=== PATIENT | female | born 1975 | race Two or more races ===

== ENCOUNTER 2020-09-25 10:00 | Emergency (ER) | payer OTHER, SELFPAY ==
--- NOTE | 2020-09-25 | ECG_ITS ---
Test Reason : CHEST PAIN Blood Pressure : / mmHG Vent. Rate : 096 BPM Atrial Rate : 096 BPM P-R Int : 132 ms QRS Dur : 084 ms QT Int : 372 ms P-R-T Axes : 049 037 077 degrees QTc Int : 469 ms Normal sinus rhythm Normal ECG When compared with ECG of 02-MAR-2016 13:50, Nonspecific T wave abnormality no longer evident in Inferior leads Referred By: Generic ED Physician Electronically Signed By:JAKI CLEANING
[2020-09-25 10:13] VITALS: BP 126/72; PULSE 94; RESP 16; TEMP 37.3; O2SAT 98; BMI 48.2
--- NOTE | 2020-09-25 11:01 | XR_ITS ---
EXAMINATION: XR CHEST CLINICAL INFORMATION: Chest discomfort and headache. COMPARISON: None TECHNIQUE: Frontal view of the chest was obtained. Penetration is suboptimal. FINDINGS: No significant abnormality is noted involving the heart, lungs, mediastinum, bony thorax or soft tissues. XR/XR chest 1V IMPRESSION: No acute cardiopulmonary process.
[2020-09-25] MEDS: 0.9 % Sodium Chloride 1,000 ML 999 ML IVCONT (11:39)
[2020-09-25] MEDS: LORazepam 2 MG/ML VIAL 1 MG IVPUSH (11:39)
[2020-09-25 11:41] LABS: MANUAL DIFF FLAG NO
[2020-09-25] MEDS: Acetaminophen 325 MG TABLET 650 MG PO (11:43)
[2020-09-25 11:45] LABS: Basophils Percent Auto 0.3 % (0-2); Eosinophils Percent Auto 0.2 % (0-4); Imm Gran Abs Auto 0.04 X10*3/uL (0.00-0.03); Imm Gran Pct Auto 0.4 % (0.0-0.4); Lymphocytes Absolute Auto 1.3 X10*3/uL (1.2-4.9); Lymphocytes Percent Auto 11.6 % (20-40); Mean Corpuscular HGB Conc 31.8 g/dl (31.0-35.0); Mean Corpuscular Hemoglobin 31.1 pg (27.0-33.0); Mean Corpuscular Volume 97.8 fL (80-98); Mean Platelet Volume 10.7 fL (9.4-12.3); Monocytes Absolute Auto 0.3 X10*3/uL (0.1-1.2); Monocytes Percent Auto 2.7 % (2-11); Neutrophils Absolute Auto 9.6 X10*3/uL (2.0-8.3); Neutrophils Percent Auto 84.8 % (45-73); Platelet Count 315 X10*3/uL (160-400); Red Cell Distribution Width 14.3 % (11.0-16.0); White Blood Count 11.3 X10*3/uL (4.8-10.8)
[2020-09-25 11:48] LABS: INTERNATIONAL NORM RATIO 0.9 (0.9-1.1); Prothrombin Time 11.2 SEC (10.8-13.0)
[2020-09-25 11:52] LABS: D Dimer 247 NG/ML
--- NOTE | 2020-09-25 11:56 | ED_ITS ---
HPI - Chest Pain General Chief Complaint: Chest Pain Stated Complaint: cough, h/a, chest pressure Time Seen by Provider: 09/25/20 10:46 Source: patient Mode of arrival: ambulatory Limitations: no limitations History of Present Illness HPI narrative: 44yoF c PMHx of asthma and anxiety presenting to the ED with complaints of intermittent headaches, nausea/vomiting, chest pain/tightness diffuse along the entire chest, palpitations and just not feeling herself for the past 3 days. She reports that this started after 1 week and half ago when she was cleaning her bathroom with bleach went into a coughing fit she contacted her PCP who placed her on a taper of steroids for 9 days and before her taper was up on the last 3 days she started having all of the symptoms and they have been constant. Also reports that she is on a keto diet. Denies any fevers, chills, dizziness, changes in vision, jaw pain, paresthesias, radiation of the chest pain, back pain, abdominal pain, cough, sore throat, diarrhea or constipa tion or any other symptoms complaints or concerns at this time. Denies recent head injury or loss of consciousness. Related Data Home Medications Medication Instructions Recorded Confirmed citalopram 1 tab PO DAILY 09/25/20 09/25/20 sertraline 1.5 tab PO DAILY 09/25/20 09/25/20 Previous Rx's Medication Instructions Recorded lorazepam [Ativan] 0.5 mg PO TID PRN #10 tab 09/25/20 nitrofurantoin monohyd/m-cryst 100 mg PO BID 7 Days #14 cap 09/25/20 [Macrobid] Allergies Allergy/AdvReac Type Severity Reaction Status Date / Time No Known Allergies Allergy Unverified 06/13/20 15:47 Review of Systems Review of Systems: Constitutional : No changes in activity, No lethargy, No recent prior head injury, No agitation, No increased fussiness, No Fever, No Chills, No Night Sweats, No Fatigue, No Malaise ENT/Mouth : No Ear Pain, No Nasal discharge/drainage, no sinus pain, No sore throat, No Rhinorrhea, No Swallowing Difficulty Eyes: No Eye Pain, No Swelling, No Redness, No Foreign Body, No Vision Changes Cardiovascular : + Chest pain, + palpitations, No SOB, no Dyspnea on Exertion, No Orthopnea, No Edema, No extremity swelling Respiratory : No Cough, No Sputum, No Wheezing, No Dyspnea Gastrointestinal : + Nausea, + Vomiting, No Diarrhea, No abdominal Pain, No H ematochezia, No Melena Genitourinary : No Dysuria, No Urinary Frequency, No Urinary Incontinence, No Urgency, No Flank Pain Musculoskeletal : No joint pain, No neck stiffness, No back pain/injury Skin : No lacerations Neuro : No unsteady gait, No Paresthesias, No Loss of Consciousness, No altered mental status, No dizziness, + Headache Denies past medical history of HIV, recent trauma, coagulopathy, recent spinal/ epidural procedure, new medication, URI symptoms, close contacts with similar symptoms, tick bite, or known CO2 exposure. Yes all other systems are reviewed and are negative [facility] Past Medical History Attestation statement: The following information was validated with the patient. Medical History Anxiety Asthma Social History Social History Alcohol intake: unknown Smoked in Last 30 Days: No Use of substances other than those prescribed or required for medical reasons: Unknown Advance Directives: No Advance Directives Information Provided: Yes Physical Exam Vital Signs: Vital Signs: Last Vital Signs Temp 99.2 F 09/25/20 10:13 Pulse 70 09/25/20 15:14 Resp 16 09/25/20 15:14 BP 131/56 L 09/25/20 15:14 Pulse Ox 98 09/25/20 15:14 Body Mass Index 48.2 Vital signs have been reviewed as normal and appeared to be correct. Blood pres sure normal. Heart rate normal. Respiration rate normal. Temperature normal. Oxygen saturation normal. Appearance: Alert. Oriented X3. No acute distress. Head: Normal external exam. Normocephalic. Atraumatic. Able to rotate head bilaterally. Eyes: PERRLA. EOMI. No nystagmus noted. Conjunctiva and sclera normal. Eyelids normal. Corneal reflex normal. ENT: EAC normal. TM's Normal. Hearing normal. Pharynx normal. Uvula midline. tongue midline. Moist mucous membranes. No trismus noted. No drooling noted. No muffled voice noted. Neck: Normal inspection. Neck supple. FROM. No adenopathy. Thyroid Normal. No meningeal signs. No neck mass noted. CVS: Normal heart rate and rhythm. Heart sound normal. No murmurs noted. Pulses normal throughout. Respiratory: No respiratory distress. Painless inspiration. Breath sounds normal. No wheezes/rales/rhonchi noted. Chest nontender. No accessory muscle usage noted or decreased air movement noted. Back: Full range of motion noted. Skin: Skin warm and dry. Normal skin color. Normal skin turgor. No rashes/lesions/lacerations noted. Extremities: Extremities exhibit normal range of motion. Extremities nontender. Able to shrug shoulders bilaterally and keep up against resistance. Neuro: Oriented X 3. No motor deficit. No sensory deficit. Reflexes normal. Moving all extremities. No focal motor deficits. Cranial nerves II-XI intact bilaterally. Facial strength normal. Normal cognition. Speech normal. Gait normal. Strength 5/5 throughout. No pronator drift. No tremor noted. No fasciculations noted. Muscle tone normal throughout. No asterixis noted. Paozfj-hn-fvyn test normal. Heel to theodore test normal. Tandem gait normal. Does not sway with eyes open. Romberg test negative. Rapid alternating movement upper extremity normal. Rapid alternating movement lower extremity normal. Hand drop from overhead-Misses face. No rigidity noted. NIHSS score 0. Course Course Course Narrative: 11am - 44yoF c PMHx of asthma and anxiety presenting to the ED with complaints of intermittent headaches, nausea/vomiting, chest pain/tightness diffuse along the entire chest, palpitations and just not feeling herself for the past 3 days. - on exam patient is alert and oriented x3 no acute neuro deficits or focal wea kness noted. Vital signs are stable within normal limits. - Concern for UT vs CVA vs electrolyte abnormality vs Anxiety vs COVID -19 - Plan: Labs, COVID/RSV/flu, CXR, CT scan of brain, CT scan of chest for PE. Provide 1 mg of Ativan and a L of IV fluids then re-evaluate. Reevaluation(s) Reevaluation #1: - WBC at 11.3. BUN 25. troponin 12.3. BNP 276. Patient positive for UTI with positive nitrates. Negative for COVID/flu/RSV. CXR WNL. CT Scan of brain and CTA of chest negative for any acute processes. - therefore awaiting repeat troponin if negative delta will DC home with antibiotics for UTI most likely patient was having symptoms from being on the course of steroids and instructions to return if any new or worsening symptoms. Patient understands agrees the plan. Time: 16:17 Reevaluation #2: - repeat troponin trended down is now at 8.5 therefore negative delta. Will DC home with antibiotic for UTI and instructions return if any new or worsening symptoms to follow up with primary care provider. Patient understands agrees the plan. Time: 17:03 [facility] - Chest Pain Medical Records Data Attestation: I reviewed the patient's medical records. Lab Data Attestation: I reviewed the patient's lab results. Result diagrams: 09/25/20 11:26 09/25/20 11: Labs: Lab Results 09/25/20 09/25/20 09/25/20 Range/Units 11:26 11:26 11:26 WBC 11.3 H (4.8-10.8) X10*3/uL RBC 4.50 (4.20-5.50) X10*6/uL Hgb 14.0 (12.0-16.0) g/dl Hct 44.0 (37-47) % MCV 97.8 (80-98) fL MCH 31.1 (27.0-33.0) pg MCHC 31.8 (31.0-35.0) g/dl RDW 14.3 (11.0-16.0) % Plt Count 315 (160-400) X10*3/uL MPV 10.7 (9.4-12.3) fL Immature Gran % (Auto) 0.4 (0.0-0.4) % Neut % (Auto) 84.8 H (45-73) % Lymph % (Auto) 11.6 L (20-40) % [place] % (Auto) 2.7 (2-11) % Eos % (Auto) 0.2 (0-4) % Baso % (Auto) 0.3 (0-2) % Lymph # (Auto) 1.3 (1.2-4.9) X10*3/uL [place] # (Auto) 0.3 (0.1-1.2) X10*3/uL Eos # (Auto) 0.0 (0.0-0.4) X10*3/uL Baso # (Auto) 0.0 (0.0-0.2) X10*3/uL Abs Immat Gran (auto) 0.04 H (0.00-0.03) X10*3/uL Absolute Neuts (auto) 9.6 H (2.0-8.3) X10*3/uL Absolute Nucleated RBC 0.000 (0.0-0.012) X10*3/uL Nucleated RBC % (auto) 0.0 (0.0-0.2) /100WBC PT 11.2 (10.8-13.0) SEC INR 0.9 (0.9-1.1) D-Dimer NG/ML Sodium 144 (135-145) mmol/L Potassium 4.3 (3.3-5.1) mmol/l Chloride 106 (96-108) mmol/L Carbon Dioxide 30 H (22-29) mmol/L Anion Gap 12 (12-20) BUN 25 H (9-16) mg/dL Creatinine 0.93 (0.5-1.4) mg/dL Estim Creat Clear Calc 105.7 Estimated GFR > 60 Random Glucose 119 H (60-115) mg/dL Calcium 9.4 (8.4-10.2) mg/dL Magnesium 2.2 (1.6-2.6) mg/dL Total Bilirubin 0.5 (0.0-1.0) mg/dL Direct Bilirubin 0.2 (0.0-0.5) mg/dL AST 18 (5-31) U/L ALT 28 (0-31) U/L Alkaline Phosphatase 88 (39-117) U/L Troponin I High Sens (<3.5-17.0) ng/L B-Natriuretic Peptide (<100) pg/mL Total Protein 7.1 (6.5-8.0) g/dL Albumin 3.9 (3.5-5.0) g/dL Beta HCG, Quant mIU/mL Urine Color Urine Appearance Urine pH (5.0-8.0) Ur Specific Latty (1.005-1.025) Urine Protein (NEG-TRACE) MG/DL Urine Glucose (UA) (NEG) MG/DL Urine Ketones (NEG) MG/DL Urine Blood (NEG) Urine Nitrite (NEG) Ur Leukocyte Esterase (NEG) Urine RBC (0) /HPF Urine WBC (0-4) /HPF Ur Squamous Epith Cells /LPF Urine Bacteria /LPF Coronavirus (PCR) (Negative) Influenza Type A (PCR) (Negative) Influenza Type B (PCR) (Negative) RSV RNA Qual (PCR) (Negative) 09/25/20 09/25/20 09/25/20 Range/Units 11:26 11:26 11:26 WBC (4.8-10.8) X10*3/uL RBC (4.20-5.50) X10*6/uL Hgb (12.0-16.0) g/dl Hct (37-47) % MCV (80-98) fL MCH (27.0-33.0) pg MCHC (31.0-35.0) g/dl RDW (11.0-16.0) % Plt Count (160-400) X10*3/uL MPV (9.4-12.3) fL Immature Gran % (Auto) (0.0-0.4) % Neut % (Auto) (45-73) % Lymph % (Auto) (20-40) % [place] % (Auto) (2-11) % Eos % (Auto) (0-4) % Baso % (Auto) (0-2) % Lymph # (Auto) (1.2-4.9) X10*3/uL [place] # (Auto) (0.1-1.2) X10*3/uL Eos # (Auto) (0.0-0.4) X10*3/uL Baso # (Auto) (0.0-0.2) X10*3/uL Abs Immat Gran (auto) (0.00-0.03) X10*3/uL Absolute Neuts (auto) (2.0-8.3) X10*3/uL Absolute Nucleated RBC (0.0-0.012) X10*3/uL Nucleated RBC % (auto) (0.0-0.2) /100WBC PT (10.8-13.0) SEC INR (0.9-1.1) D-Dimer 247 NG/ML Sodium (135-145) mmol/L Potassium (3.3-5.1) mmol/l Chloride (96-108) mmol/L Carbon Dioxide (22-29) mmol/L Anion Gap (12-20) BUN (9-16) mg/dL Creatinine (0.5-1.4) mg/dL Estim Creat Clear Calc Estimated GFR Random Glucose (60-115) mg/dL Calcium (8.4-10.2) mg/dL Magnesium (1.6-2.6) mg/dL Total Bilirubin (0.0-1.0) mg/dL Direct Bilirubin (0.0-0.5) mg/dL AST (5-31) U/L ALT (0-31) U/L Alkaline Phosphatase (39-117) U/L Troponin I High Sens 12.3 (<3.5-17.0) ng/L B-Natriuretic Peptide 276 H (<100) pg/mL Total Protein (6.5-8.0) g/dL Albumin (3.5-5.0) g/dL Beta HCG, Quant < 2 mIU/mL Urine Color Urine Appearance Urine pH (5.0-8.0) Ur Specific Latty (1.005-1.025) Urine Protein (NEG-TRACE) MG/DL Urine Glucose (UA) (NEG) MG/DL Urine Ketones (NEG) MG/DL Urine Blood (NEG) Urine Nitrite (NEG) Ur Leukocyte Esterase (NEG) Urine RBC (0) /HPF Urine WBC (0-4) /HPF Ur Squamous Epith Cells /LPF Urine Bacteria /LPF Coronavirus (PCR) (Negative) Influenza Type A (PCR) (Negative) Influenza Type B (PCR) (Negative) RSV RNA Qual (PCR) (Negative) 09/25/20 09/25/20 09/25/20 Range/Units 11:28 11:57 15:35 WBC (4.8-10.8) X10*3/uL RBC (4.20-5.50) X10*6/uL Hgb (12.0-16.0) g/dl Hct (37-47) % MCV (80-98) fL MCH (27.0-33.0) pg MCHC (31.0-35.0) g/dl RDW (11.0-16.0) % Plt Count (160-400) X10*3/uL MPV (9.4-12.3) fL Immature Gran % (Auto) (0.0-0.4) % Neut % (Auto) (45-73) % Lymph % (Auto) (20-40) % [place] % (Auto) (2-11) % Eos % (Auto) (0-4) % Baso % (Auto) (0-2) % Lymph # (Auto) (1.2-4.9) X10*3/uL [place] # (Auto) (0.1-1.2) X10*3/uL Eos # (Auto) (0.0-0.4) X10*3/uL Baso # (Auto) (0.0-0.2) X10*3/uL Abs Immat Gran (auto) (0.00-0.03) X10*3/uL Absolute Neuts (auto) (2.0-8.3) X10*3/uL Absolute Nucleated RBC (0.0-0.012) X10*3/uL Nucleated RBC % (auto) (0.0-0.2) /100WBC PT (10.8-13.0) SEC INR (0.9-1.1) D-Dimer NG/ML Sodium (135-145) mmol/L Potassium (3.3-5.1) mmol/l Chloride (96-108) mmol/L Carbon Dioxide (22-29) mmol/L Anion Gap (12-20) BUN (9-16) mg/dL Creatinine (0.5-1.4) mg/dL Estim Creat Clear Calc Estimated GFR Random Glucose (60-115) mg/dL Calcium (8.4-10.2) mg/dL Magnesium (1.6-2.6) mg/dL Total Bilirubin (0.0-1.0) mg/dL Direct Bilirubin (0.0-0.5) mg/dL AST (5-31) U/L ALT (0-31) U/L Alkaline Phosphatase (39-117) U/L Troponin I High Sens 8.5 (<3.5-17.0) ng/L B-Natriuretic Peptide (<100) pg/mL Total Protein (6.5-8.0) g/dL Albumin (3.5-5.0) g/dL Beta HCG, Quant mIU/mL Urine Color YELLOW Urine Appearance CLEAR Urine pH 8.5 H (5.0-8.0) Ur Specific Latty 1.020 (1.005-1.025) Urine Protein NEG (NEG-TRACE) MG/DL Urine Glucose (UA) NEG (NEG) MG/DL Urine Ketones NEG (NEG) MG/DL Urine Blood NEG (NEG) Urine Nitrite POS H (NEG) Ur Leukocyte Esterase NEG (NEG) Urine RBC 0 (0) /HPF Urine WBC 0-2 (0-4) /HPF Ur Squamous Epith Cells TRACE /LPF Urine Bacteria 1+ /LPF Coronavirus (PCR) NEGATIVE (Negative) Influenza Type A (PCR) NEGATIVE (Negative) Influenza Type B (PCR) NEGATIVE (Negative) RSV RNA Qual (PCR) NEGATIVE (Negative) Imaging Data Chest x-ray: Attestation: I personally reviewed and interpreted this imaging study as follows: Radiologist's impression: IMPRESSION: No acute cardiopulmonary process. CT scan - head: Attestation: I personally reviewed and interpreted this imaging study as follows: Radiologist's impression: IMPRESSION: No acute intracranial pathology. CT scan of chest for PE: Attestation: I personally reviewed and interpreted this imaging study as follows: Radiologist's impression: IMPRESSION: No evidence of PE. No evidence of aortic dissection or aneurysm. The lungs are clear. VTE: negative ECG Data ECG #1: Attestation: I personally reviewed and interpreted this ECG as follows: ECG interpretation date: 09/25/20 ECG interpretation time: 10:37 Interpretation: NSR With a ventricular rate of 96 with normal LA interval normal QRS duration normal QT/QTC interval. No acute ischemic changes noted. Similar when compared to prior EKG On 03/02/2016. Discharge Plan Discharge Clinical Impression: Elevated troponin, Palpitation, Headache, UTI (urinary tract infection) Patient Disposition: Home, Self-Care Instructions: Chest Pain (ED), Heart Palpitations (ED), Urinary Tract Infection in Women (ED), Acute Headache (ED), High Troponin Levels (ED) Prescriptions: New nitrofurantoin monohyd/m-cryst [Macrobid] 100 mg capsule 100 mg PO BID 7 Days Qty: 14 RF: 0 lorazepam [Ativan] 0.5 mg tablet 0.5 mg PO TID PRN (Reason: anxiety) Qty: 10 RF: 0 No Action citalopram 40 mg tablet 1 tab PO DAILY RF: 0 sertraline 100 mg tablet 1.5 tab PO DAILY RF: 0 Referrals: Titus Perez MD [Primary Care Provider] - 2 days Unruly Carter MD [Physician] - 2 days Stand Alone Forms: Work/School Release Print Language: Icelandic
--- NOTE | 2020-09-25 11:59 | CT_ITS ---
EXAMINATION: CT ANGIOGRAM OF THE CHEST WITH AND WITHOUT CONTRAST (CT PULMONARY ANGIOGRAM FOR PE) CLINICAL INFORMATION: Reason for Exam pt c headache/chest pain/sob x 3 days COMPARISON: None TECHNIQUE: Prior to contrast administration, noncontrast localization images were obtained. Subsequently, multidetector volumetric imaging was performed from the thoracic inlet to below the diaphragms following the administration of 80 mL Omnipaque 350 intravenous contrast. No contrast reaction reported Sagittal, coronal, and MIP oblique sagittal reformatted images were obtained on the CT workstation, uploaded to PACS, and reviewed. This CT examination was performed using dose optimization techniques as appropriate, variously including the following: *Automated exposure control *Adjustment of mA and/or kV according to patient size (this includes techniques or standardized protocols for targeted exams where dose is matched to indication/reason for exam; i.e. extremities or head) *Use of iterative reconstruction technique Total exam dose-length product 555 mGy-cm FINDINGS: QUALITY OF STUDY/CONTRAST BOLUS: Satisfactory. PULMONARY ARTERIES: No central or segmental pulmonary emboli. THORACIC AORTA: No aneurysm or dissection. LUNG: The lungs are well-expanded without any focal consolidation or mass or pulmonary nodule. PLEURA: No pleural effusion or pneumothorax. MEDIASTINUM: Thyroid lobes are symmetrical and normal. The central trachea and the bronchi widely patent. The heart size and the great vessels are normal caliber. No evidence of septal bowing or right heart strain. CHEST WALL/AXILLA: No axillary or internal mammary lymphadenopathy. OSSEOUS STRUCTURES: No acute or suspicious osseous abnormality. Mildly in disc changes and ventral spondylosis noted in mid and lower dorsal spine. No lytic process seen. UPPER ABDOMEN: Utilized liver, spleen, pancreas and bilateral adrenal glands are unremarkable. Visualized upper kidneys are unremarkable. No reflux of contrast into the hepatic veins to suggest elevated right heart pressures. CT/CT angio chest PE protocol IMPRESSION: No evidence of PE. No evidence of aortic dissection or aneurysm. The lungs are clear. VTE: negative
--- NOTE | 2020-09-25 11:59 | CT_ITS ---
EXAMINATION: CT HEAD WITHOUT CONTRAST CLINICAL INFORMATION: Headache, chest pain, shortness of breath for 3 days. COMPARISON: None TECHNIQUE: Contiguous axial imaging was performed from the skull base to vertex without intravenous administration of contrast. Coronal and sagittal reformatted images were obtained. This CT examination was performed using dose optimization techniques as appropriate, variously including the following: *Automated exposure control *Adjustment of mA and/or kV according to patient size (this includes techniques or standardized protocols for targeted exams where dose is matched to indication/reason for exam; i.e. extremities or head) *Use of iterative reconstruction technique DLP: 788 mGy-cm FINDINGS: There is no evidence of acute intracranial hemorrhage or territorial infarction. No abnormal mass effect or midline shift is seen. Saavedra to white matter differentiation is well preserved. No extra-axial fluid collections are identified. The ventricles are normal in size. There is no abnormal attenuation within the brain parenchyma. The osseous structures and soft tissues are normal. The mastoid air cells and visualized portions of the paranasal sinuses are well aerated. CT/CT head/brain wo con IMPRESSION: No acute intracranial pathology.
[2020-09-25 12:05] LABS: Glucose Urine UA NEG (NEG); Leukocyte Esterase Urine NEG (NEG); Nitrite Urine POS (NEG); PH 8.5 (5.0-8.0); Urine Blood NEG (NEG); Urine Ketones NEG (NEG); Urine Protein NEG (NEG-TRACE)
[2020-09-25 12:06] LABS: Appearance Urine CLEAR; Color Urine YELLOW
[2020-09-25 12:15] LABS: B Type Natriuretic Peptide 276 pg/mL (<100); Troponin-I High Sensitivity 12.3 ng/L (<3.5-17.0)
[2020-09-25 12:16] LABS: Alanine Aminotransferase 28 U/L (0-31); Albumin Level 3.9 g/dL (3.5-5.0); Alkaline Phosphatase 88 U/L (39-117); Anion Gap 12 (12-20); Aspartate Amino Transferase 18 U/L (5-31); Bilirubin Direct 0.2 mg/dL (0.0-0.5); Bilirubin Total 0.5 mg/dL (0.0-1.0); Blood Urea Nitrogen 25 mg/dL (9-16); Calcium 9.4 mg/dL (8.4-10.2); Carbon Dioxide 30 mmol/L (22-29); Chloride 106 mmol/L (96-108); Creatinine Clr Calc Pharmacy 105.7; Estimated Glomerular Filt Rate > 60; Glucose Random 119 mg/dL (60-115); HCG Quantitative < 2 mIU/mL; Magnesium 2.2 mg/dL (1.6-2.6); Potassium 4.3 mmol/l (3.3-5.1); Sodium 144 mmol/L (135-145); Total Protein 7.1 g/dL (6.5-8.0)
[2020-09-25 12:22] LABS: Bacteria Urine 1+ /LPF; RBC Urine 0 /HPF (0); Squamous Epithelial Cell Urine TRACE /LPF; WBC Urine 0-2 /HPF (0-4)
[2020-09-25] MEDS: iohexoL 350 MG/ML 100 ML INFUS..BTL IV (14:37)
[2020-09-25] MEDS: Ibuprofen 800 MG TABLET PO (15:10)
[2020-09-25 15:14] VITALS: BP 131/56; PULSE 70; RESP 16; O2SAT 98
[2020-09-25 15:57] LABS: Influenza A PCR NEGATIVE (Negative); Influenza B PCR NEGATIVE (Negative); Resp Syncy Virus RNA Qual PCR NEGATIVE (Negative); SARS COV2 PCR INHOUSE NEGATIVE (Negative)
[2020-09-25 16:17] LABS: Troponin-I High Sensitivity 8.5 ng/L (<3.5-17.0)
== END 2020-09-25 18:06 | disposition home or self-care (01) ==
PROVIDERS: Physician Assistant Medical; Emergency Provider Emergency Medicine Emergency Medical Services; PCP Internal Medicine
DX: R00.2 Palpitations (principal); R51.9 Headache, unspecified; N39.0 Urinary tract infection, site not specified; R77.8 Other specified abnormalities of plasma proteins; Z20.828 Contact with and (suspected) exposure to other viral communicable diseases
CPT/HCPCS: 0241U; 36415; 70450; 71045; 71275; 80048; 80076; 81001; 81003; 83735; 83880; 84484; 84702; 85025; 85379; 85610; 87086; 87088; 87147; 87186; 93005; 96361; 96374; 99284; 99285; J2060; Q9967

== ENCOUNTER 2021-09-16 22:39 | Emergency (ER) | payer OTHER, SELFPAY ==
[2021-09-16 23:14] VITALS: BP 183/59; PULSE 69; RESP 18; TEMP 36.4; O2SAT 96; BMI 41.5
[2021-09-16 23:46] LABS: COVID-19 Test Negative (Negative)
== END 2021-09-17 01:00 | disposition left against medical advice (07) ==
LOC: HO.ED 09-17 00:50
PROVIDERS: Emergency Provider Emergency Medicine; PCP Internal Medicine
DX: R51.9 Headache, unspecified (principal); R42 Dizziness and giddiness; F41.1 Generalized anxiety disorder; F43.0 Acute stress reaction; Z20.822 Contact with and (suspected) exposure to COVID-19
CPT/HCPCS: 36415; 87635; 99282; 99283; 99284

== ENCOUNTER 2022-03-14 17:10 | Emergency (ER) | payer OTHER, SELFPAY ==
--- NOTE | ~2022-03-14 | CT_ITS ---
EXAMINATION: CT ABDOMEN AND PELVIS WITHOUT CONTRAST CLINICAL INFORMATION: Right hip/groin pain. History of hip dysplasia and hip replacement. COMPARISON: No recent priors. CT abdomen dated from 08/04/2008. TECHNIQUE: Multidetector volumetric imaging was performed from the superior aspect of the liver through the pubic symphysis. Sagittal and coronal reformatted images were obtained on the technologist's workstation. This CT examination was performed using dose optimization techniques as appropriate, variously including the following: *Automated exposure control. *Adjustment of mA and/or kV according to patient size (this includes techniques or standardized protocols for targeted exams where dose is matched to indication/reason for exam; i.e. extremities or head). *Use of iterative reconstruction technique. DLP: 1029 mGy-cm FINDINGS: LUNG BASES: Small calcified granuloma in the right lower lobe (4:48). No focal consolidation or pleural effusions. Subsegmental atelectasis. LIVER, GALLBLADDER, AND BILIARY TREE: The liver is enlarged measuring 22 cm craniocaudally with decreased attenuation most consistent with hepatic steatosis. No discrete focal liver abnormality is identified in this limited noncontrast examination. Cholecystectomy. No biliary ductal dilatation. PANCREAS: Limited noncontrast examination. Previously described fluid attenuating lesion in the body of the pancreas is not well visualized in this examination. The main pancreatic duct is nondilated. SPLEEN: Limited noncontrast examination, unremarkable. ADRENAL GLANDS: No adrenal mass. KIDNEYS AND URETERS: Limited noncontrast examination. No nephrolithiasis or hydronephrosis. BLADDER: Limitedly evaluated as it is partially obscured by streak artifacts from a right hip arthroplasty and underdistended. GASTROINTESTINAL TRACT: The stomach and the small bowel are nondilated. Normal appendix (5:54). No evidence of acute diverticulitis or colitis. No bowel obstruction. ABDOMINAL WALL: Anterior abdominal rectus muscle diastases. No significant hernia. LYMPH NODES: No lymphadenopathy by size criteria. VASCULAR: Scattered atherosclerotic disease. Abdominal aorta is of normal diameter. PELVIC VISCERA: Partially obscured by streak artifacts from right hip prosthesis. No definite pelvic lesions. OSSEOUS STRUCTURES: The visualized portions of the right hip arthroplasty are intact. However, the distal aspect of the femoral stem is outside of the [id number]. Stable 1 cm anterolisthesis of L5 on S1 with bilateral L5 pars defects. Multilevel degenerative changes of the spine. CT/CT abdomen pelvis wo con IMPRESSION: 1. No acute abnormality to explain the patient's symptoms. It is important to note, that the distal aspect of the femoral stem pole of the right hip arthroplasty is outside of the [id number]. Therefore, if a periprosthetic fracture or other complication is suspected, correlation with a dedicated radiographic examination of the right hip/right femur is recommended. 2. Hepatomegaly and hepatic steatosis.
[2022-03-14 18:00] VITALS: BP 131/105; PULSE 72; RESP 18; TEMP 36.7; O2SAT 99; BMI 47.5
[2022-03-14 19:45] LABS: MANUAL DIFF FLAG NO
[2022-03-14 19:46] LABS: Appearance Urine HAZY; Basophils Percent Auto 0.3 % (0-2); Color Urine YELLOW; Eosinophils Absolute Auto 0.4 X10*3/uL (0.0-0.4); Eosinophils Percent Auto 3.4 % (0-4); Glucose Urine UA NEG (NEG); Hematocrit 44.4 % (37.0-47.0); Hemoglobin 14.4 g/dl (12.0-16.0); Imm Gran Abs Auto 0.03 X10*3/uL (0.00-0.03); Imm Gran Pct Auto 0.3 % (0.0-0.4); Leukocyte Esterase Urine NEG (NEG); Lymphocytes Percent Auto 34.8 % (20-40); Mean Corpuscular HGB Conc 32.4 g/dl (31.0-35.0); Mean Corpuscular Hemoglobin 31.9 pg (27.0-33.0); Mean Corpuscular Volume 98.2 fL (80.0-98.0); Mean Platelet Volume 9.6 fL (9.4-12.3); Monocytes Absolute Auto 0.7 X10*3/uL (0.1-1.2); Monocytes Percent Auto 6.4 % (2-11); Neutrophils Absolute Auto 6.4 x10*3/uL (2.0-8.3); Neutrophils Percent Auto 54.8 % (45-73); Nitrite Urine NEG (NEG); PH 5.5 (5.0-8.0); Platelet Count 306 X10*3/uL (160-400); Red Blood Count 4.52 X10*6/uL (4.20-5.50); Specific Gravity - Urine >= 1.030 (1.005-1.025); Urine Blood NEG (NEG); Urine Ketones NEG (NEG); Urine Protein NEG (NEG-TRACE); White Blood Count 11.6 X10*3/uL (4.8-10.8)
[2022-03-14 20:02] LABS: Alanine Aminotransferase 15 U/L (0-31); Albumin Level 4.1 g/dL (3.5-5.0); Alkaline Phosphatase 87 U/L (39-117); Anion Gap 12 (12-20); Aspartate Amino Transferase 15 U/L (5-31); Bilirubin Direct 0.2 mg/dL (0.0-0.5); Bilirubin Total 0.5 mg/dL (0.0-1.0); Blood Urea Nitrogen 18 mg/dL (9-16); Calcium 9.2 mg/dL (8.4-10.2); Carbon Dioxide 27 mmol/L (22-29); Chloride 105 mmol/L (96-108); Creatinine Clr Calc Pharmacy 109.8; Estimated Glomerular Filt Rate > 60; Glucose Fasting 91 mg/dL (60-99); Lipase 14 U/L (8-78); Potassium 4.4 mmol/L (3.3-5.1); Sodium 140 mmol/L (135-145); Total Protein 7.7 g/dL (6.5-8.0)
--- NOTE | 2022-03-14 21:33 | ED.GENADULT ---
HPI - General Adult General Chief complaint: Abdominal Pain Stated complaint: severe R hip pain Time Seen by Provider: 03/14/22 21:21 Source: patient Limitations: no limitations History of Present Illness HPI narrative: This is a 46-year-old female with history of right hip dysplasia and right hip replacement 8 years ago, who for the last few days has had recurrent pain in her right hip and right groin, as well as in her right buttock. The patient denies any injury. Patient saw her PCP today and had an x-ray which showed the hardware to be intact. She does have some sense of numbness in her right leg over the whole leg. She is able to ambulate. 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 She has also noted that she occasionally has had incontinence of urine in the last few days. Pain is worst when she tries to flex her right hip. She does have chronic low back pain. Related Data Home Medications Medication Instructions Recorded Confirmed citalopram 40 mg tablet 1 tab PO DAILY 09/25/20 09/25/20 sertraline 100 mg tablet 1.5 tab PO DAILY 09/25/20 09/25/20 Previous Rx's Medication Instructions Recorded lorazepam 0.5 mg tablet (Ativan) 0.5 mg PO TID PRN anxiety #10 tabs 09/25/20 nitrofurantoin 100 mg PO BID uti 7 days #14 caps 09/25/20 monohydrate/macrocrystals 100 mg capsule (Macrobid) prednisone 20 mg tablet 40 mg PO DAILY #10 tabs 03/14/22 Allergies Allergy/AdvReac Type Severity Reaction Status Date / Time acetaminophen [From Percocet] Allergy Itching Verified 03/14/22 18:03 oxycodone [From Percocet] Allergy Itching Verified 03/14/22 18:03 Review of Systems Review of Systems: As per HPI Constitutional: Constitutional: Denies chills and Denies fever(s) Cardiovascular: Cardiovascular: Reports no additional cardiovascular complaints Respiratory: Respiratory: Reports no additional respiratory complaints Gastrointestinal: Gastrointestinal: Reports no additional gastrointestinal complaints Musculoskeletal: Musculoskeletal: Reports as per HPI [facility] Past Medical History Medical History Anxiety Asthma Social History Social History Alcohol intake: unknown Advance Directives: No Advance Directives Information Provided: Yes Physical Exam ED Vital Signs: Vital Signs - 24 hr 03/14/22 18:00 Temperature 98.0 F Pulse Rate 72 Respiratory Rate 18 Blood Pressure 131/105 H Pulse Oximetry 99 Oxygen Delivery Method Room Air BMI result Body Mass Index 47.5 Const Other: Patient is morbidly obese. Patient is able to move her legs off the gurney and stand up from the gurney. She is able to take a few steps normally. She does have decreased power of right foot dorsiflexion and big toe dorsiflexion which she states is normal. She has global decreased sensation to light touch in her right leg, not dermatomal. General: no acute distress Orientation/consciousness: patient oriented x3 HENMT Head: Yes normal to inspection General nose exam: Normal external nose present Mouth: moist mucous membranes Throat: Yes posterior oropharynx normal, Yes tonsils normal and Yes uvula midline Eyes Eyelids: Yes eyelids normal Conjunctivae: conjunctivae normal Pupils: Equal, round and reactive pupils present Neck Neck: Yes supple Resp Effort & Inspection: normal respiratory effort Auscultation: clear to auscultation bilaterally Cardio Rate: regular rate Rhythm: regular rhythm Heart sounds: S1 normal heart sound present, S2 normal heart sound present, no gallops, no murmurs and no rubs GI Other: Morbidly obese, no tenderness to the inguinal areas Inspection: No distended Palpation (GI): Soft to palpation and nontender Auscultation: normal bowel sounds Back/Spine/Pelvis Other: Tender thoracic spine Skin General skin exam: other (Warm and dry) Neuro General: patient oriented x3 and CN's II-XI intact bilaterally Cranial nerves: Yes Equal, round and reactive pupils present Extrem General: Yes no pedal edema Psych Affect: normal affect Attitude: cooperative Medical Decision Making [facility] Narrative Medical decision making narrative: Patient was right groin/hip/buttock pain, in the setting of prior right hip dysplasia and hip replacement several years ago. Patient had been pain-free until recently. Patient also complained of some urinary continence however none in the emergency department and had no other clinical evidence of cauda equinus syndrome, was able to ambulate normally. CT scan of the abdomen and pelvis was bone windows showed no concerning findings. Patient was advised to follow-up with orthopedic physician Lab Data Result diagrams: 03/14/22 19:38 03/14/22 19:38 Labs: Lab Results 03/14/22 03/14/22 03/14/22 Range/Units 19:38 19:38 19:38 WBC 11.6 H (4.8-10.8) X10*3/uL RBC 4.52 (4.20-5.50) X10*6/uL Hgb 14.4 (12.0-16.0) g/dl Hct 44.4 (37.0-47.0) % MCV 98.2 H (80.0-98.0) fL MCH 31.9 (27.0-33.0) pg MCHC 32.4 (31.0-35.0) g/dl RDW 13.0 (11.0-16.0) % Plt Count 306 (160-400) X10*3/uL MPV 9.6 (9.4-12.3) fL Immature Gran % (Auto) 0.3 (0.0-0.4) % Neut % (Auto) 54.8 (45-73) % Lymph % (Auto) 34.8 (20-40) % [place] % (Auto) 6.4 (2-11) % Eos % (Auto) 3.4 (0-4) % Baso % (Auto) 0.3 (0-2) % Lymph # (Auto) 4.0 (1.2-4.9) X10*3/uL [place] # (Auto) 0.7 (0.1-1.2) X10*3/uL Eos # (Auto) 0.4 (0.0-0.4) X10*3/uL Baso # (Auto) 0.0 (0.0-0.2) X10*3/uL Abs Immat Gran (auto) 0.03 (0.00-0.03) X10*3/uL Absolute Neuts (auto) 6.4 (2.0-8.3) x10*3/uL Absolute Nucleated RBC 0.000 (0.0-0.012) X10*3/uL Nucleated RBC % (auto) 0.0 (0.0-0.2) /100WBC Sodium 140 (135-145) mmol/L Potassium 4.4 (3.3-5.1) mmol/L Chloride 105 (96-108) mmol/L Carbon Dioxide 27 (22-29) mmol/L Anion Gap 12 (12-20) BUN 18 H (9-16) mg/dL Creatinine 0.78 (0.5-1.4) mg/dL Estim Creat Clear Calc 109.8 Estimated GFR > 60 Fasting Glucose 91 (60-99) mg/dL Calcium 9.2 (8.4-10.2) mg/dL Total Bilirubin 0.5 (0.0-1.0) mg/dL Direct Bilirubin 0.2 (0.0-0.5) mg/dL AST 15 (5-31) U/L ALT 15 (0-31) U/L Alkaline Phosphatase 87 (39-117) U/L Total Protein 7.7 (6.5-8.0) g/dL Albumin 4.1 (3.5-5.0) g/dL Lipase 14 (8-78) U/L Urine Color YELLOW Urine Appearance HAZY Urine pH 5.5 (5.0-8.0) Ur Specific [place] >= 1.030 H (1.005-1.025) Urine Protein NEG (NEG-TRACE) MG/DL Urine Glucose (UA) NEG (NEG) MG/DL Urine Ketones NEG (NEG) MG/DL Urine Blood NEG (NEG) Urine Nitrite NEG (NEG) Ur Leukocyte Esterase NEG (NEG) Imaging Data CT abdomen pelvis without contrast: Radiologist's impression: IMPRESSION: 1. No acute abnormality to explain the patient's symptoms. It is important to note, that the distal aspect of the femoral stem pole of the right hip arthroplasty is outside of the [id number]. Therefore, if a periprosthetic fracture or other complication is suspected, correlation with a dedicated radiographic examination of the right hip/right femur is recommended. ? 2. Hepatomegaly and hepatic steatosis. Discharge Plan Discharge Clinical Impression: Acute hip pain Patient Disposition: Home, Self-Care Instructions: Hip Pain (ED) Additional Instructions: Follow-up with the orthopedic physician. Start the prednisone as prescribed Prescriptions: New prednisone 20 mg tablet 40 mg PO DAILY Qty: 10 0RF No Action citalopram 40 mg tablet 1 tab PO DAILY sertraline 100 mg tablet 1.5 tab PO DAILY nitrofurantoin monohyd/m-cryst [Macrobid] 100 mg capsule 100 mg PO BID 7 Days Qty: 14 0RF Rx Instructions: must administer with a meal/food lorazepam [Ativan] 0.5 mg tablet 0.5 mg PO TID PRN (Reason: anxiety) Qty: 10 0RF Discharge Date/Time: 03/14/22 23:48
[2022-03-14] MEDS: diazePAM 10 MG/2 ML CARTRIDGE IM (22:30)
[2022-03-14] MEDS: Ketorolac Tromethamine 30 MG/ML VIAL IM (22:30)
[2022-03-14] MEDS: dexAMETHasone sod phosphate 10 MG/ML VIAL IM (22:30)
== END 2022-03-14 23:48 | disposition home or self-care (01) ==
PROVIDERS: Emergency Provider Emergency Medicine; PCP Internal Medicine
DX: M25.551 Pain in right hip (principal); Z96.641 Presence of right artificial hip joint
CPT/HCPCS: 36415; 74176; 80048; 80076; 81003; 83690; 85025; 96372; 99283; 99284; J1100; J1885; J3360

== ENCOUNTER 2023-11-15 17:12 | Emergency (ER) | payer OTHER, SELFPAY ==
--- NOTE | ~2023-11-15 | XR_ITS ---
EXAMINATION: XR CHEST CLINICAL INFORMATION: Chest pain, shortness of breath. COMPARISON: CTA chest 09/25/2020. Chest radiograph 09/25/2020. TECHNIQUE: Frontal view of the chest was obtained. FINDINGS: Normal appearance of the cardiomediastinal silhouette. No focal airspace opacities, pleural effusion or pneumothorax. No acute osseous findings. Visualized upper abdomen is within normal limits. XR/XR chest 1V IMPRESSION: No acute cardiopulmonary findings.
--- NOTE | ~2023-11-15 | CT_ITS ---
EXAMINATION: CT head/brain wo IV con CLINICAL INFORMATION: Reason for Exam NICK, HTN COMPARISON: CT head 09/25/2020 TECHNIQUE: Contiguous axial imaging was performed from the skull base to vertex without intravenous contrast. Sagittal and coronal reformatted images were obtained. This CT examination was performed using dose optimization techniques as appropriate, variously including the following: * Automated exposure control * Adjustment of mA and/or kV according to patient size (this includes techniques or standardized protocols for targeted exams where dose is matched to indication/reason for exam; i.e. extremities or head) Use of iterative reconstruction technique DLP: 875 mGy-cm FINDINGS: Stable hyperdensity in the central anil is favored to be secondary to technique/volume averaging. Otherwise, no definite intracranial hemorrhage.No mass-effect or ventricular shift is noted. No acute, territorial loss of dyson-white differentiation. The ventricles and sulci are appropriate in size and configuration for the patient's stated age. No depressed calvarial fracture. Scattered polypoid mucosal thickening in the paranasal sinuses with aerated debris in the left maxillary sinus. The mastoid air cells are clear. CT/CT head/brain wo IV con IMPRESSION: Punctate hyperdensity in the central anil is favored to be secondary to technique/volume averaging. Otherwise, no definite acute intracranial hemorrhage. No acute, territorial loss of dyson-white differentiation.
[2023-11-15 18:17] VITALS: BP 178/101; PULSE 110; RESP 18; TEMP 36.9; O2SAT 94; BMI 60.4
--- NOTE | 2023-11-15 18:17 | ED.GENADULT ---
HPI - General Adult General Chief complaint: Recheck/Abnormal Lab/Rx Stated complaint: high blood pressure, chest discomfort Time Seen by Provider: 11/15/23 20:47 Source: patient Mode of arrival: ambulatory Limitations: no limitations History of Present Illness HPI narrative: Patient is a 48-year-old female who presents to the emergency department for evaluation of multiple complaints, reports yesterday evening when she was walking to the garage she developed sudden onset of headache, dizziness, diffuse anterior chest pain with some shortness of breath that resolved after a few minutes of resting. Reports that she awoke today still with a headache that was frontal in nature bilateral behind both eyes like a pressure sensation. Reports intermittent paresthesias to the bilateral upper and lower extremities. She had attributed this to a stress reaction, regarding the recent loss of her over the past 2 weeks. But states ?I just wanted to come in to make sure not heart attack?. At this time she denies any chest pain or shortness of breath. Headache persist, she did not take any medication at home to try and help alleviate. Related Data Home Medications Medication Instructions Recorded Confirmed citalopram 40 mg tablet 1 tab PO DAILY 09/25/20 09/25/20 sertraline 100 mg tablet 1.5 tab PO DAILY 09/25/20 09/25/20 Previous Rx's Medication Instructions Recorded lorazepam 0.5 mg tablet (Ativan) 0.5 mg PO TID PRN anxiety #10 tabs 09/25/20 nitrofurantoin 100 mg PO BID uti 7 days #14 caps 09/25/20 monohydrate/macrocrystals 100 mg capsule (Macrobid) prednisone 20 mg tablet 40 mg (2 x 20 mg) PO DAILY #10 tabs 03/14/22 Allergies Allergy/AdvReac Type Severity Reaction Status Date / Time acetaminophen [From Percocet] Allergy Itching Verified 11/15/23 18:17 oxycodone [From Percocet] Allergy Itching Verified 11/15/23 18:17 Review of Systems Review of Systems: Yes all other systems are reviewed and are negative PMFSH Past Medical History Attestation statement: The following information was validated with the patient. Source: old records reviewed Medical History Anxiety Asthma Social History Social History Alcohol intake: unknown Advance Directives: No Advance Directives Information Provided: No Physical Exam ED Vital Signs: Vital Signs - 24 hr 11/15/23 18:17 11/15/23 20:46 11/15/23 20:47 Temperature 98.4 F Pulse Rate 110 H 90 96 Respiratory Rate 18 Blood Pressure 178/101 H 145/76 H 152/90 H Pulse Oximetry 94 Oxygen Delivery Method Room Air 11/15/23 20:47 11/15/23 23:16 Temperature 97.9 F Pulse Rate 101 H 77 Respiratory Rate 18 Blood Pressure 152/93 H 128/62 Pulse Oximetry 96 Oxygen Delivery Method Room Air BMI result Body Mass Index 60.4 Appearance: Alert.?Oriented to person, place and time. No acute distress.?Normal affect. Eyes: Pupils equal, round and reactive to light.? ENT: Pharynx normal.?? Neck: Normal inspection.? Neck supple.?? CVS: Heart sounds normal. Normal heart rate and rhythm.? Pulses normal.?? Respiratory: No respiratory distress.? Lung sounds clear to auscultation bilaterally?? Abdomen: Soft and non-tender. Normoactive bowel sounds. Skin: Skin warm and dry.? Normal skin color.??? Extremities: No lower extremity edema.? No calf ttp? Neuro: Moves all extremities spontaneously. Sensation intact bilaterally. CN II-XII intact. No focal neuro deficits. Ambulates with normal steady gait. Course Course Course Narrative: RME: 48 year-old F w/ PMHx asthma, anxiety presenting to the ED c/o HTN at home (200/98), chest pressure, NICK, lightheadedness x this morning. Also reports some neck pain & tingling. Sx have been constant. Admits her passed 2 weeks ago, thought sx were due to anxiety initially HTNsive 178/101 repeat 178/107 EKG, Labs, head CT, CXR ordered Full HPI, ROS and PE to be performed by primary ED provider. Medications Administered Discontinued Medications Generic Name Dose Route Start Last Admin Trade Name Freq PRN Reason Stop Dose Admin Acetaminophen 975 mg 11/15/23 21:41 11/15/23 23:16 Acetaminophen 325 Mg Tablet PO 11/15/23 21:42 975 mg ONCE ONE Administration Ibuprofen 600 mg 11/15/23 21:41 11/15/23 23:16 Ibuprofen 600 Mg Tablet PO 11/15/23 21:42 600 mg ONCE ONE Administration Medical Decision Making Medical Decision Making [facility] Narrative: Patient is a 48-year-old female past medical history of anxiety, asthma, outpatient presenting to emergency department for evaluation of multiple complaints as per HPI. She presented hypertensive initially, which did improve throughout her stay here, she does state ?I get very anxious around doctors?. Via labs, CBC is without leukocytosis or anemia, CMP is unremarkable, high sensitive troponin x2 are negative, EKG reveals a sinus tachycardia, ventricular rate of 102, QTC 458, no evidence of ST depression, ST-elevation, or acute ischemic findings, do not suspect ACS at this time. Wells negative, unlikely PE. No respiratory distress. COVID-19 testing is positive and patient was made aware of this, she declines Paxlovid. CT of the head was obtained due to hypertension and headache, no evidence of ICH. At this time feel that she is stable for discharge home, outpatient follow-up with primary care provider. Discussed worrisome signs and symptoms that would warrant re-evaluation in the emergency department. All questions answered. Stable for discharge. Differential Diagnosis Differential Diagnoses: The differential diagnosis associated with the presentation includes (As noted above) Admission/Observation Consideration of admission/observation: Escalation of care including admission/observation considered (As noted above) Lab Data [facility] Lab Attestation statement: I reviewed the patient's lab results. (As noted above) 11/15/23 18:32 11/15/23 18:32 Labs: Lab Results 11/15/23 11/15/23 Range/Units 18:32 21:34 WBC 7.4 (4.8-10.8) X10*3/uL RBC 4.87 (4.20-5.50) X10*6/uL Hgb 15.5 (12.0-16.0) g/dl Hct 46.2 (37.0-47.0) % MCV 94.9 (80.0-98.0) fL MCH 31.8 (27.0-33.0) pg MCHC 33.5 (31.0-35.0) g/dl RDW 12.4 (11.0-16.0) % Plt Count 282 (160-400) X10*3/uL MPV 9.3 L (9.4-12.3) fL Immature Gran % (Auto) 0.3 (0.0-0.4) % Neut % (Auto) 63.4 (45-73) % Lymph % (Auto) 25.6 (20-40) % [place] % (Auto) 7.5 (2-11) % Eos % (Auto) 3.1 (0-4) % Baso % (Auto) 0.1 (0-2) % Lymph # (Auto) 1.9 (1.2-4.9) X10*3/uL [place] # (Auto) 0.6 (0.1-1.2) X10*3/uL Eos # (Auto) 0.2 (0.0-0.4) X10*3/uL Baso # (Auto) 0.0 (0.0-0.2) X10*3/uL Abs Immat Gran (auto) 0.02 (0.00-0.03) X10*3/uL Absolute Neuts (auto) 4.7 (2.0-8.3) x10*3/uL Absolute Nucleated RBC 0.000 (0.0-0.012) X10*3/uL Nucleated RBC % (auto) 0.0 (0.0-0.2) /100WBC Sodium 143 (135-145) mmol/L Potassium 4.2 (3.3-5.1) mmol/L Chloride 105 (96-108) mmol/L Carbon Dioxide 26 (22-29) mmol/L Anion Gap 16 (12-20) BUN 16 (9-16) mg/dL Creatinine 0.93 (0.5-1.4) mg/dL Estim Creat Clear Calc 105.1 Estimated GFR > 60 Random Glucose 105 (60-115) mg/dL Calcium 9.7 (8.4-10.2) mg/dL Magnesium 2.0 (1.6-2.6) mg/dL Total Bilirubin 0.5 (0.0-1.0) mg/dL Direct Bilirubin 0.2 (0.0-0.5) mg/dL AST 21 (5-31) U/L ALT 23 (0-31) U/L Alkaline Phosphatase 85 (39-117) U/L Troponin I High Sens < 2.7 < 2.7 (<3.5-17.0) ng/L Total Protein 7.9 (6.5-8.0) g/dL Albumin 4.1 (3.5-5.0) g/dL Influenza Type A (PCR) NEGATIVE (Negative) Influenza Type B (PCR) NEGATIVE (Negative) RSV RNA Qual (PCR) NEGATIVE (Negative) SARS-CoV-2 RNA (RT-PCR) POSITIVE A (Negative) Independent Interpretation I performed an independent interpretation of an: EKG (As noted above) and Plain X-Ray (No evidence of pneumonia) Radiology Impression Discussion of test interpretation with radiology: I have reviewed the radiologist's reading. Radiologist Impression: CT/CT head/brain wo IV con IMPRESSION: Punctate hyperdensity in the central anil is favored to be secondary to technique/volume averaging. Otherwise, no definite acute intracranial hemorrhage. No acute, territorial loss of dyson-white differentiation. XR/XR chest 1V IMPRESSION: No acute cardiopulmonary findings. Independent Historian Clinical information obtained from an independent historian. History obtained from or confirmed by: Friend (Present who confirms history) Prescription Management I considered prescription management with: Antiviral (See narrative above) Critical Care Time Critical Care Time Critical Care Time: Yes Total Critical Care Time: 43 Attestation: I personally attest to this critical care time spent taking care of the patient exclusive of all other billable procedures was approximately 43 minutes including initial evaluation of patient, ordering tests, x-ray interpretation, EKG interpretation, medical consultation, documentation, re-evaluation. Discharge Plan Discharge Clinical Impression: COVID-19 Patient Disposition: Home, Self-Care Instructions: COVID-19 (Coronavirus Disease 2019) (ED) Additional Instructions: Soonest and isolation date is 11/20/2023 Be sure to rest, stay well hydrated drinking plenty of fluids, eat small frequent meals. Tylenol/ibuprofen can be used as needed for fever/pain. Klrq-shy-zaaynys cold medications may be helpful as well for symptoms. Saline nasal spray, humidifier may be helpful for nasal congestion. You may return to the emergency department with any new or worsening symptoms or concerns. Follow-up with your primary care provider as needed. Prescriptions: No Action citalopram 40 mg tablet 1 tab PO DAILY sertraline 100 mg tablet 1.5 tab PO DAILY nitrofurantoin monohyd/m-cryst [Macrobid] 100 mg capsule 100 mg PO BID 7 Days Qty: 14 0RF Rx Instructions: must administer with a meal/food lorazepam [Ativan] 0.5 mg tablet 0.5 mg PO TID PRN (Reason: anxiety) Qty: 10 0RF prednisone 20 mg tablet 40 mg PO DAILY Qty: 10 0RF Referrals: Titus Perez III, MD [Primary Care Provider] - Interventions: ED Discharge Assessment Last Done: 11/15/23 23:19 Discharge Date/Time: 11/15/23 23:20
--- NOTE | 2023-11-15 18:22 | ECG_ITS ---
Test Reason : CHEST PAIN Blood Pressure : / mmHG Vent. Rate : 102 BPM Atrial Rate : 102 BPM P-R Int : 130 ms QRS Dur : 074 ms QT Int : 352 ms P-R-T Axes : 032 003 010 degrees QTc Int : 458 ms Sinus tachycardia Otherwise normal ECG When compared with ECG of 25-SEP-2020 10:37, Nonspecific T wave abnormality now evident in Inferior leads Referred By: Jil Ashford Electronically Signed By:FRANCISCO J AYALA MD
[2023-11-15 18:36] LABS: MANUAL DIFF FLAG NO
[2023-11-15 18:41] LABS: Basophils Percent Auto 0.1 % (0-2); Eosinophils Absolute Auto 0.2 X10*3/uL (0.0-0.4); Eosinophils Percent Auto 3.1 % (0-4); Hematocrit 46.2 % (37.0-47.0); Hemoglobin 15.5 g/dl (12.0-16.0); Imm Gran Abs Auto 0.02 X10*3/uL (0.00-0.03); Imm Gran Pct Auto 0.3 % (0.0-0.4); Lymphocytes Absolute Auto 1.9 X10*3/uL (1.2-4.9); Lymphocytes Percent Auto 25.6 % (20-40); Mean Corpuscular HGB Conc 33.5 g/dl (31.0-35.0); Mean Corpuscular Hemoglobin 31.8 pg (27.0-33.0); Mean Corpuscular Volume 94.9 fL (80.0-98.0); Mean Platelet Volume 9.3 fL (9.4-12.3); Monocytes Absolute Auto 0.6 X10*3/uL (0.1-1.2); Monocytes Percent Auto 7.5 % (2-11); Neutrophils Absolute Auto 4.7 x10*3/uL (2.0-8.3); Neutrophils Percent Auto 63.4 % (45-73); Platelet Count 282 X10*3/uL (160-400); Red Blood Count 4.87 X10*6/uL (4.20-5.50); Red Cell Distribution Width 12.4 % (11.0-16.0); White Blood Count 7.4 X10*3/uL (4.8-10.8)
[2023-11-15 18:52] LABS: Alanine Aminotransferase 23 U/L (0-31); Albumin Level 4.1 g/dL (3.5-5.0); Alkaline Phosphatase 85 U/L (39-117); Anion Gap 16 (12-20); Aspartate Amino Transferase 21 U/L (5-31); Bilirubin Direct 0.2 mg/dL (0.0-0.5); Bilirubin Total 0.5 mg/dL (0.0-1.0); Blood Urea Nitrogen 16 mg/dL (9-16); Calcium 9.7 mg/dL (8.4-10.2); Carbon Dioxide 26 mmol/L (22-29); Chloride 105 mmol/L (96-108); Creatinine Clr Calc Pharmacy 105.1; Estimated Glomerular Filt Rate > 60; Glucose Random 105 mg/dL (60-115); Potassium 4.2 mmol/L (3.3-5.1); Sodium 143 mmol/L (135-145); Total Protein 7.9 g/dL (6.5-8.0)
[2023-11-15 18:59] LABS: Troponin-I High Sensitivity < 2.7 ng/L (<3.5-17.0)
[2023-11-15 20:46] VITALS: BP 145/76; PULSE 90
[2023-11-15 20:47] VITALS: BP 152/90; BP 152/93; PULSE 101; PULSE 96
--- NOTE | 2023-11-15 20:54 | MHC.EDTECH ---
This Tech assumed care of this PT. Pt changed into a hospital gown and placed on a inker. Orthostatics completed and documented
[2023-11-15 22:01] LABS: Troponin-I High Sensitivity < 2.7 ng/L (<3.5-17.0)
[2023-11-15 22:32] LABS: Influenza A PCR NEGATIVE (Negative); Influenza B PCR NEGATIVE (Negative); Resp Syncy Virus RNA Qual PCR NEGATIVE (Negative); SARS COV2 PCR INHOUSE POSITIVE (Negative)
[2023-11-15 23:16] VITALS: BP 128/62; PULSE 77; RESP 18; TEMP 36.6; O2SAT 96
[2023-11-15] MEDS: Ibuprofen 600 MG TABLET PO (23:16)
[2023-11-15] MEDS: Acetaminophen 325 MG TABLET 975 MG PO (23:16)
== END 2023-11-15 23:20 | disposition home or self-care (01) ==
PROVIDERS: Nurse Practitioner Family; Physician Assistant; Emergency Provider Student in an Organized Health Care Education/Training Program; PCP Internal Medicine
DX: U07.1 COVID-19 (principal); R07.89 Other chest pain; R51.9 Headache, unspecified; I10 Essential (primary) hypertension; Z79.899 Other long term (current) drug therapy
CPT/HCPCS: 0241U; 36415; 70450; 71045; 80048; 80076; 83735; 84484; 85025; 93005; 99284

== ENCOUNTER → 2023-11-15 18:22 | Outpatient (BNV) | payer OTHER, SELFPAY | PROVIDERS: Emergency Provider Student in an Organized Health Care Education/Training Program; PCP Internal Medicine; Visit Provider Internal Medicine Cardiovascular Disease | DX: R07.9 Chest pain, unspecified (principal) | CPT/HCPCS: 93010 ==